=== PATIENT | female | born 1980 | race Caucasian/White ===

== ENCOUNTER 2018-01-03 16:01 | Emergency (ER) | payer OTHER ==
[~2018-01-03] VITALS: Ht 172.7 cm; Wt 103.4 kg
[~2018-01-03 16:01] MED LIST: CITRANATAL B-C1 EAC1; IRON1 TAB PO; IRON1TAB4 PO; LO/OVRAL-281 TAB PO; PANADOL EXTRA500 MG; PRENATAL CAPLE1 EACH; PRENATAL CAPLE1 EACH PO; SYNTHROID50 MCG; SYNTHROID50 MCG PO
[2018-01-03] MEDS ORDERED: SYNTHROID300 MCG (16:19)
== END 2018-01-04 15:18 | disposition home or self-care (01) ==
LOC: ER 16:01
DX: N93.8 Other specified abnormal uterine and vaginal bleeding (principal); D64.89 Other specified anemias; C73 Malignant neoplasm of thyroid gland
CPT/HCPCS: 76830; 36430 ×2; 86904 ×2; 86922 ×2; P9021 ×2

== ENCOUNTER → 2018-01-29 | Day surgery (SDC) | payer OTHER ==
[~2018-01-29] MED LIST changes: +SYNTHROID300 MCG
== END | disposition home or self-care (01) ==
LOC: CIR.AMB 07:00
DX: N92.1 Excessive and frequent menstruation with irregular cycle (principal); N93.8 Other specified abnormal uterine and vaginal bleeding

== ENCOUNTER 2018-10-10 08:56 | Outpatient (CLI) | payer OTHER | END 2018-10-10 09:08 | disposition home or self-care (01) | LOC: TOM 08:56 | DX: R10.9 Unspecified abdominal pain (principal); D50.0 Iron deficiency anemia secondary to blood loss (chronic) ==

== ENCOUNTER 2020-08-15 09:00 | Outpatient (CLI) | payer OTHER | END 2020-08-15 09:11 | disposition home or self-care (01) | LOC: LAB 09:00 | PROVIDERS: ATTEND Internal Medicine Hematology & Oncology | DX: D50.8 Other iron deficiency anemias (principal); I10 Essential (primary) hypertension; R74.02 Elevation of levels of lactic acid dehydrogenase [LDH]; K76.89 Other specified diseases of liver; D51.1 Vitamin B12 deficiency anemia due to selective vitamin B12 malabsorption with proteinuria; D51.0 Vitamin B12 deficiency anemia due to intrinsic factor deficiency; E03.8 Other specified hypothyroidism; E06.3 Autoimmune thyroiditis; E72.11 Homocystinuria; E72.12 Methylenetetrahydrofolate reductase deficiency; D50.0 Iron deficiency anemia secondary to blood loss (chronic); E04.8 Other specified nontoxic goiter; C73 Malignant neoplasm of thyroid gland ==

== ENCOUNTER 2020-08-15 10:06 | Outpatient (CLI) | payer OTHER | END 2020-08-15 10:29 | disposition HB | LOC: SONOGRAMA 10:06 | PROVIDERS: ATTEND Internal Medicine Hematology & Oncology | DX: E04.2 Nontoxic multinodular goiter (principal); E04.8 Other specified nontoxic goiter; C73 Malignant neoplasm of thyroid gland; D68.61 Antiphospholipid syndrome; D68.69 Other thrombophilia; E72.12 Methylenetetrahydrofolate reductase deficiency; D50.0 Iron deficiency anemia secondary to blood loss (chronic); E03.8 Other specified hypothyroidism ==

== ENCOUNTER 2022-09-18 07:37 | Outpatient (CLI) | payer OTHER | END 2022-09-18 07:56 | disposition home or self-care (01) | LOC: MAMO-SONO 07:37 | PROVIDERS: ATTEND General Practice | DX: Z12.31 Encounter for screening mammogram for malignant neoplasm of breast (principal); N60.09 Solitary cyst of unspecified breast; R10.9 Unspecified abdominal pain; E78.2 Mixed hyperlipidemia; K76.0 Fatty (change of) liver, not elsewhere classified ==